=== PATIENT | male | born 2000 | race Hispanic/Latino ===

== ENCOUNTER 2023-05-08 19:28 | Emergency (ER) | payer SELFPAY ==
--- NOTE | 2023-05-08 19:35 | ED.ABDPAIN ---
HPI - Abdominal Pain General Chief Complaint: Abdominal Pain Stated Complaint: Abdominal Pain Time Seen by Provider: 05/08/23 19:36 Source: patient Mode of arrival: ambulatory Limitations: no limitations History of Present Illness HPI narrative: Patient is a 23-year-old male who presents with right lower quadrant pain for 4 days worsening today. Does report some relief when laying on that side. Denies any constipation, diarrhea, nausea, vomiting, fever, chills. Does currently have his appendix. Related Data Home Medications Medication Instructions Recorded Confirmed No Home Medications 05/08/23 05/08/23 Allergies Allergy/AdvReac Type Severity Reaction Status Date / Time No Known Allergies Allergy Verified 05/08/23 19:38 Review of Systems Review of Systems: All systems reviewed & are unremarkable except as noted in HPI and below Constitutional: Constitutional: Denies body ache(s), Denies chills, Denies fatigue, Denies fever(s), Denies headache(s), Denies malaise and Denies weakness Eyes: Eyes: Denies blurry vision, Denies irritation and Denies loss of vision ENT: Denies otalgia, Denies headache(s), Denies nasal discharge, Denies sinus pain and Denies sore throat Cardiovascular: Cardiovascular: Denies chest pain, Denies irregular heart rhythm and Denies dyspnea Respiratory: Respiratory: Denies dyspnea Gastrointestinal: Gastrointestinal: Reports abdominal pain, Denies melena, Denies hematochezia, Denies diarrhea, Denies nausea and Denies vomiting Musculoskeletal: Musculoskeletal: Denies back pain, Denies myalgias and Denies arthralgias Integumentary/Breasts: Skin/Breast: Denies pruritus and Denies rash Neurologic: Denies headache(s), Denies loss of vision and Denies weakness Psychiatric: Psychiatric: Reports no additional psychiatric complaints Endocrine: Endocrine: Denies fatigue PMFSH Comments At time of signature, agree with nursing past medical, surgical, social and family history. There is no relevant family history pertinent to the presenting complaint. Exam Const: General: cooperative, healthy appearing, no acute distress and well nourished Nutritional Appearance: well nourished Orientation/consciousness: patient oriented x3 Limitations: no limitations HENMT: Head: normal to inspection, normocephalic and atraumatic Ears: hearing grossly normal bilaterally and external ears normal Face/Nose/Sinus: Normal external nose present, normal facial exam and face symmetric Face and sinus: normal facial exam and face symmetric Mouth: Yes lip normal Eyes: General: appearance normal, both eyes and all related structures Alignment and Position: alignment normal and position normal Periorbital: periorbital findings normal Eyelids: eyelids normal Pupils: Equal, round and reactive pupils present EOM: EOMs intact bilaterally Neck: Neck: normal visual inspection, full ROM and supple Chest: Chest palpation & inspection: normal inspection of the chest Resp: Effort & Inspection: normal respiratory effort and able to speak in complete sentences Auscultation: clear to auscultation bilaterally Cardio: Rate: regular rate Rhythm: regular rhythm Heart sounds: S1 normal heart sound present and S2 normal heart sound present GI: Inspection: normal to inspection GI Palp: Yes abdominal tenderness, Yes Soft to palpation, Yes Tenderness to palpation present (GI), Yes Guarding due to palpation present (GI) and Yes Rebound tenderness present Auscultation: normal bowel sounds Skin: General skin exam: normal color and no rashes or lesions noted Neuro: General: patient oriented x3 and moves all extremities Cranial nerves: Yes Equal, round and reactive pupils present Speech: normal speech Gait exam (Neuro): Normal gait present Extrem: General: normal to inspection, full ROM and no edema Psych: Appearance: grossly normal and well kempt Mental Status: mental status grossly normal Speech and movement: Normal speec
[2023-05-08 19:39] VITALS: BP 127/78; PULSE 97; RESP 20; TEMP 38.7; O2SAT 100
== END 2023-05-08 20:11 | disposition short-term general hospital (02) ==
PROVIDERS: Emergency Provider Nurse Practitioner Family
DX: R10.31 Right lower quadrant pain (principal)
CPT/HCPCS: 99202; G0463

== ENCOUNTER 2023-05-08 20:27 | Observation (INO) | payer SELFPAY ==
--- NOTE | ~2023-05-08 | CT_ITS ---
EXAMINATION: CT abdomen pelvis w con DATE: 05/08/2023 22:03 INDICATION: Right lower quadrant abdominal pain TECHNIQUE: Computed tomography (CT) of the abdomen and pelvis was performed with 100 mL Omnipaque-350 intravenous contrast. Automated exposure control and iterative reconstruction technique were employe d. The dose-length product was 331.24 mGy-cm. COMPARISON: None FINDINGS: Lung bases are clear. Heart size is normal. No pericardial or pleural effusion. Liver, gallbladder, s pleen, pancreas, bilateral adrenal glands and kidneys are normal. Surrounding mucosal enhancement and mucosal hyperemia of the dilated fluid-filled appendix which measures up to 1.4 cm in maximal diamet er consistent with acute appendicitis. Likely obstructing small appendicolith is seen near the base o f the appendix. Remainder of the bowels are unremarkable. Bladder is normal. No abscess or free intra peritoneal gas or fluid. No pathologically enlarged abdominal or pelvic lymphadenopathy. Mild lumbar levocurvature which could be positional. IMPRESSION: 1. Acute appendicitis. Dr. Estes discussed these findings with Dr. Flores at 10:20 PM. Reviewed, dictated and finalized at location A.
[2023-05-08 20:43] VITALS: BP 128/79; PULSE 95; RESP 16; TEMP 36.9; O2SAT 100
[2023-05-08 21:04] LABS: Basophils Percent Auto 0.2 % (0.2-1.2); Hematocrit 42.6 % (42.0-52.0); Hemoglobin 14.4 g/dL (14.0-18.0); Immature Granulocyte Absolute 0.08 K/mm3 (0.00-0.031); Immature Granulocyte Percent A 0.5 % (0-0.5); Lymphocytes Absolute Auto 1.03 K/mm3 (0.9-3.2); Lymphocytes Percent Auto 6.8 % (18.3-44.2); Mean Corpuscular HGB Conc 33.8 g/dl (32-36); Mean Corpuscular Hemoglobin 30.3 pg (26-34); Mean Corpuscular Volume 89.7 fl (80-100); Mean Platelet Volume 8.4 fl (7.4-10.4); Monocytes Absolute Auto 1.2 K/mm3 (0.1-0.6); Monocytes Percent Auto 8.1 % (2.6-8.5); Neutrophils Absolute Auto 12.9 K/mm3 (1.3-6.7); Neutrophils Percent Auto 84.4 % (45.5-73.1); Platelet Count Result 301 k/mm3 (150-375); Red Blood Count 4.75 M/mm3 (4.6-6.20); Red Cell Distribution Width 12.8 % (11.5-14.5); White Blood Count 15.2 K/mm3 (4.5-10.0)
[2023-05-08 21:11] LABS: Appearance Urine Clear (Clear); Bacteria Urine None Seen /hpf; Bilirubin Urine Negative (Negative); Blood Urine 2+ (Negative); Color Urine Yellow (Yellow); Glucose Urine UA Negative (Negative); Ketones Urine Negative (Negative); Leukocyte Esterase Ur Negative LEU/UL (Negative); Nitrate Urine Negative (Negative); Non Pathogenic Casts 0-2; Protein Urine Trace mg/dL (Negative); Specific Grav Ur 1.028 (1.001-1.035); Squamous Epithelial Cell Urine None seen /hpf (Few); Urobilinogen Urine 0.2 mg/dL (<2.0); WBC Urine 0-5 /hpf; pH Urine 5.5 (5.0-9.0)
[2023-05-08 21:12] LABS: Add Urine Microscopic? YES
[2023-05-08 21:21] LABS: Alanine Aminotransferase 34 U/L (6-50); Alkaline Phosphatase 124 U/L (38-126); Anion Gap 9 mmol/L (8-16); Aspartate Amino Transferase 32 U/L (17-59); Blood Urea Nitrogen 13 mg/dL (9-20); Calcium 9.8 mg/dL (8.4-10.2); Carbon Dioxide 26 mmol/L (22-30); Chloride 99 mmol/L (98-107); Estimated CRCL calculation 104 ml/min; Estimated Glomerular Filt Rate > 60; Glucose 109 mg/dL (65-110); Lipase 48 U/L (23-300); Potassium 4.2 mmol/L (3.4-5.0); Sodium 134 mmol/L (137-145)
[2023-05-08 22:29] VITALS: BP 150/91; PULSE 90; RESP 18; O2SAT 100
--- NOTE | 2023-05-08 22:54 | ED.ABDPAIN ---
HPI - Abdominal Pain General Chief Complaint: Abdominal Pain Stated Complaint: abd pain Time Seen by Provider: 05/08/23 21:53 History of Present Illness HPI narrative: 23-year-old male with no significant past medical history presented the emergency department for evaluation of 4 days of right lower quadrant pain. Patient has had some diarrhea but denies any current nausea or vomiting. Patient initially went to an urgent care but was sent to the ED for further evaluation. Patient is [place]-speaking and a family member preferred to translate. Related Data Home Medications Medication Instructions Recorded Confirmed No Home Medications 05/08/23 05/09/23 Allergies Allergy/AdvReac Type Severity Reaction Status Date / Time No Known Allergies Allergy Verified 05/08/23 20:47 Review of Systems Review of Systems: All systems reviewed & are unremarkable except as noted in HPI and below PMFSH Social History Social History Smoking packs per day: 0.5 Smoking cigarettes per day: 10.0 Smoking status: Former smoker Tobacco type: cigarettes Second hand tobacco smoke exposure: Yes Alcohol intake: current Drinks per week: 1 Substance use: never Lack of Transportation: No Lack of Food: Sometimes True Current Housing: I Have Housing Concerned About Future Housing: No Difficulty Paying Gas/Electric Bills: No Difficulty Paying for Meds: No Currently Unemployed: No Education: Associate Degree Difficulty w/ Childcare or Family Care: No Spiritual care concerns: No Exam Narrative: APPEARANCE: Well appearing, no pain, no distress, well-nourished. HEAD: normocephalic, atraumatic. EYES: PERRLA/EOMI, conjunctivae clear. NOSE: Normal no drainage EARS:TMS clear with good light reflex. THROAT: Pharynx clear, no exudate. NECK: Supple. No adenopathy, no masses. RESPIRATORY: Airway patent, respirations nonlabored. Clear to auscultation bilaterally, no rales, rhonchi, wheezing. CARDIOVASCULAR: Regular rate and rhythm without murmurs rubs or gallops. ABDOMINAL: Soft, lower abdominal tenderness to palpation EXTR MUSCULOSKELETAL: Moves all extremities. Strength/ROM intact, No edema, No calf tenderness. NEURO: Alert. Cranial nerves II through XII intact. Grossly intact SKIN: Warm, dry. Normal Color Course Course Emergency Course: 23-year-old male with right lower quadrant pain. Patient is afebrile but does have a leukocytosis of 15.2. No significant abnormalities on his CMP UA does show some red blood cells. CT scan showed acute appendicitis surrounding mucosal enhancement and mucosal hyperemia of the dilated fluid-filled appendix which measures up to 1.4 cm in diameter consistent with acute appendicitis. Likely obstructing small appendicoliths seen near the base of the appendix. No abscess or free intraperitoneal gas or fluid. Patient last had something to eat around 7 PM. Surgery was consulted. And patient was admitted primarily to surgery. Patient and family were updated on the plan for admission. Patient was started on Zosyn prior to admission. Vital Signs Vital signs: Vital Signs Temperature 98.4 F 05/08/23 20:43 Pulse Rate 95 05/08/23 20:43 Respiratory Rate 16 05/08/23 20:43 Blood Pressure 128/79 05/08/23 20:43 Pulse Oximetry 100 05/08/23 20:43 Oxygen Delivery Room Air 05/08/23 20:43 Temperature 98.7 F 05/09/23 01:20 Pulse Rate 96 05/09/23 01:20 Respiratory Rate 16 05/09/23 01:20 Blood Pressure 129/74 05/09/23 01:20 Pulse Oximetry 100 05/09/23 01:20 Oxygen Delivery Room Air 05/09/23 02:08 MDM - Abdominal Pain Differential Diagnosis Differential diagnosis: Likely abdominal pain, acute appendicitis, constipation, diverticulitis, gastroenteritis, pancreatitis and small bowel obstruction Lab Data Attestation: I reviewed the patient's lab results. 05/08/23 20:51 05/08/23 20:51 Labs: Lab Results 05/08
--- NOTE | 2023-05-08 23:00 | PC.NURSE ---
Assumed care of pt. at this time. Report from TOMMY Goldman
--- NOTE | 2023-05-08 23:00 | PC.NURSE ---
Assumed care of pt. at this time. Report from TOMMY Goldman
[2023-05-08 23:22] LABS: Lactic Acid Reflex 1.3 mmol/L (0.7-2.0)
[2023-05-08 23:27] VITALS: BP 144/82; PULSE 95; RESP 26; TEMP 37.1; O2SAT 99
[2023-05-08] MEDS: LACTATED RINGERS 1,000 ML 999 ML IV CONT (23:27)
[2023-05-08] MEDS: PIPERACILLN/TAZ 3.375GM/NS50ML 3.375 GM/50 ML BAG IVPB (23:27)
[2023-05-08] MEDS: HYDROmorphone HCL INJ (*CRX) 1 MG/ML SYR IV PUSH (23:33)
[2023-05-09] VITALS (15 sets, daily range): BP systolic 105–148; BP diastolic 61–96; PULSE 62–96; RESP 12–22; TEMP 36.4–37.3; O2SAT 97–100
--- NOTE | 2023-05-09 01:22 | ADMGEN ---
This patient, Rhett Edmond, was admitted to [facility] Surg Room 311-01. Patient/family oriented to hospital policies and general routines including ID bracelet, bed and alarms, visiting hours, pain management, procedures, bathroom and other care routines, personal items, smoking policy, room service/diet, and visiting hours. Information on how to activate the Rapid Response Team has been discussed. Patient/Family are encouraged to report perceived risks to care and to ask questions if they do not understand what they are told or what they should do.
[2023-05-09] MEDS: HYDROmorphone HCL INJ (*CRX) 1 MG/ML SYR 0.5 MG IV PUSH ×2 (01:39→06:16)
[2023-05-09] MEDS: SODIUM CHLORIDE 0.9% IV 1,000 ML 125 ML IV CONT ×2 (06:01→16:38)
--- NOTE | 2023-05-09 07:56 | PM.IMHP ---
H&P: HPI History of Present Illness Date/Time: 05/09/23 07:56 Chief Complaint: Acute appendicitis Narrative: Information was obtained with the aid of a [place]-speaking language interpreter. Patient is a previously healthy 23-year-old male who presented to the emergency with a 4 day history of gradually worsening right lower quadrant abdominal pain. He had some diarrhea which was nonbloody but no nausea or vomiting. No subjective fever at home. In the emergency room was [place] [id number] scan abdomen pelvis was performed showing a dilated inflamed appendix without evidence of perforation or periappendiceal abscess. He has had no prior abdominal surgery. Review of Systems Review of Systems: The remainder of the review of systems to include constitutional, HEENT, cardiovascular, respiratory, GI, , integumentary, musculoskeletal, endocrine, immunologic, hematologic, psychiatric, and neurologic are all negative except for which is mentioned above in the HPI. [facility] Social History Social History Smoking packs per day: 0.5 Smoking cigarettes per day: 10.0 Smoking status: Former smoker Tobacco type: cigarettes Second hand tobacco smoke exposure: Yes Alcohol intake: current Drinks per week: 1 Substance use: never Lack of Transportation: No Lack of Food: Sometimes True Current Housing: I Have Housing Concerned About Future Housing: No Difficulty Paying Gas/Electric Bills: No Difficulty Paying for Meds: No Currently Unemployed: No Education: Associate Degree Difficulty w/ Childcare or Family Care: No Spiritual care concerns: No Meds Home Medications and Allergies Home Medications Medication Instructions Recorded Confirmed Type No Home Medications 05/08/23 05/09/23 History Allergies Allergy/AdvReac Type Severity Reaction Status Date / Time No Known Allergies Allergy Verified 05/08/23 20:47 Vital Signs Vital Signs - 24 hr 05/08/23 20:43 05/08/23 22:29 05/08/23 23:27 Temperature 36.9 C 37.1 C Pulse Rate 95 90 95 Respiratory Rate 16 18 26 H Blood Pressure 128/79 150/91 H 144/82 H Pulse Oximetry 100 100 99 Oxygen Delivery Room Air 05/09/23 01:07 05/09/23 01:20 05/09/23 02:08 Temperature 37.1 C Pulse Rate 81 96 Respiratory Rate 14 16 Blood Pressure 113/89 129/74 Pulse Oximetry 97 100 Oxygen Delivery Room Air 05/09/23 06:00 Temperature 37.2 C Pulse Rate 82 Respiratory Rate 16 Blood Pressure 121/66 Pulse Oximetry 100 Oxygen Delivery Exam Const: General: comfortable and no acute distress HENMT: Ears: TM's normal bilaterally Face/Nose/Sinus: Normal nares present Mouth: Yes moist mucous membranes Eyes: General: appearance normal, both eyes and all related structures Sclera: sclerae normal Pupils: Equal, round and reactive pupils present EOM: EOMs intact bilaterally Neck: Neck: supple and no JVD Resp: Effort & Inspection: normal respiratory effort Auscultation: clear to auscultation bilaterally Cardio: Rate: regular rate Rhythm: regular rhythm GI: Other: Abdomen is soft and nondistended. He has moderate to severe tenderness to palpation right lower quadrant the abdomen with localized peritoneal signs but no generalized peritoneal signs. No masses are organomegaly is appreciated. No ventral hernias are noted. Skin: General skin exam: normal color and no rashes or lesions noted Neuro: General: gait normal Speech: normal speech Motor exam (neuro): 5/5 motor strength present throughout Sensory Exam: normal sensation Extrem: General: normal to inspection Psych: Mental Status: mental status grossly normal Affect: normal affect H&P: Results Labs Labs: Short CBC 05/08/23 Range/Units 20:51 WBC 15.2 H (4.5-10.0) K/mm3 Hgb 14.4 (14.0-18.0) g/dL Hct 42.6 (42.0-52.0) % Plt Count 301 (150-375) k/mm3 [facility] 05/08/23
--- NOTE | 2023-05-09 08:13 | WPDHPUPDATE1 ---
History and Physical Update Update Date/Time: 05/09/23 08:13 History and Physical has been reviewed, including an updated exam of the patient. There are NO changes in the patient's condition. Risks, benefits, and alternatives have been discussed and questions answered. Patient agrees to proceed with procedure.
[2023-05-09] MEDS: HYDROmorphone HCL INJ (*CRX) 1 MG/ML SYR IV PUSH ×2 (10:01→16:48)
[2023-05-09] MEDS: PIPERACILLN/TAZ 3.375GM/NS50ML 3.375 GM/50 ML BAG IVPB ×2 (10:01→15:20)
--- NOTE | 2023-05-09 12:51 | WPDANESEPPF ---
Anes - Initial Pre Proc Eval Procedure: Operation Date: 05/09/23 14:00 Proposed Procedures p Laparoscopic Appendectomy - Aden Gilmore MD Date/Time: 05/09/23 12:51 Surgeon: Aden Gilmore MD Pre Op Diagnosis: abd pain Patient Data Age: 23 Gender: M Height: 1.7 m Weight: 71.7 kg Last Vital Signs Temp 37.2 C 05/09/23 06:00 Pulse 82 05/09/23 06:00 Resp 16 05/09/23 06:00 BP 121/66 05/09/23 06:00 Pulse Ox 100 05/09/23 06:00 O2 Del Method Room Air 05/09/23 02:08 Allergies Allergy/AdvReac Type Severity Reaction Status Date / Time No Known Allergies Allergy Verified 05/08/23 20:47 Home Medications Medication Instructions Recorded Confirmed Type No Home Medications 05/08/23 05/09/23 History Laboratory Tests 05/08/23 05/08/23 05/08/23 20:51 20:56 23:05 WBC 15.2 H K/mm3 (4.5-10.0) RBC 4.75 M/mm3 (4.6-6.20) Hgb 14.4 g/dL (14.0-18.0) Hct 42.6 % (42.0-52.0) MCV 89.7 fl (80-100) MCH 30.3 pg (26-34) MCHC 33.8 g/dl (32-36) RDW 12.8 % (11.5-14.5) Plt Count 301 k/mm3 (150-375) MPV 8.4 fl (7.4-10.4) Immature Gran % (Auto) 0.5 % (0-0.5) Neut % (Auto) 84.4 H % (45.5-73.1) Lymph % (Auto) 6.8 L % (18.3-44.2) [place] % (Auto) 8.1 % (2.6-8.5) Eos % (Auto) 0.0 % (0-4.4) Baso % (Auto) 0.2 % (0.2-1.2) Lymph # (Auto) 1.03 K/mm3 (0.9-3.2) [place] # (Auto) 1.2 H K/mm3 (0.1-0.6) Eos # (Auto) 0.0 K/mm3 (0-0.3) Baso # (Auto) 0.0 K/mm3 (0.0-0.1) Abs Immat Gran (auto) 0.08 H K/mm3 (0.00-0.031) Absolute Neuts (auto) 12.9 H K/mm3 (1.3-6.7) Absolute Nucleated RBC 0.0 K/mm3 (0.0-0.012) Nucleated RBC % 0.0 % (0.0-0.2) Sodium 134 L mmol/L (137-145) Potassium 4.2 mmol/L (3.4-5.0) Chloride 99 mmol/L (98-107) Carbon Dioxide 26 mmol/L (22-30) Anion Gap 9 mmol/L (8-16) BUN 13 mg/dL (9-20) Creatinine 0.90 mg/dL (0.7-1.3) Estim Creat Clear Calc 104 ml/min Estimated GFR > 60 (59 - ) Glucose 109 mg/dL (65-110) Lactic Acid 1.3 mmol/L (0.7-2.0) Calcium 9.8 mg/dL (8.4-10.2) Total Bilirubin 1.0 mg/dL (0.2-1.3) AST 32 U/L (17-59) ALT 34 U/L (6-50) Alkaline Phosphatase 124 U/L (38-126) Total Protein 9.0 H g/dL (6.3-8.2) Albumin 5.0 g/dL (3.5-5.1) Lipase 48 U/L (23-300) Urine Color Yellow (Yellow) Urine Appearance Clear (Clear) Urine pH 5.5 (5.0-9.0) Ur Specific [place] 1.028 (1.001-1.035) Urine Protein Trace mg/dL (Negative) Urine Glucose (UA) Negative mg/dL (Negative) Urine Ketones Negative mg/dL (Negative) Ur Blood (Man) 2+ H (Negative) Urine Nitrate Negative (Negative) Urine Bilirubin Negative (Negative) Urine Urobilinogen 0.2 mg/dL (<2.0) Leukocyte Esterase Rfl Negative BUDDY/UL (Negative) Urine RBC 11-20 H /hpf (0-2) Urine WBC 0-5 /hpf Ur Squamous Epith Cells None seen /hpf (Few) Urine Bacteria None seen /hpf Urine Casts 0-2 Patient hx anesthesia problems: none Family hx anesthesia problems: none Results Review: All pre-operative results and documents have been reviewed as part of the pre-operative evaluation. [facility] Social History Social History Smoking packs per day: 0.5 Smoking cigarettes per day: 10.0 Smoking status: Former smoker Tobacco type: cigarettes Second hand tobacco smoke exposure: Yes Alcohol intake: current Drinks per week:
[2023-05-09] MEDS: LACTATED RINGERS 1,000 ML 30 ML IV CONT (13:45)
[2023-05-09] MEDS: LIDO 1%/EPINEPHRINE 1:100,000 20 ML VIAL 6 ML INFILTRATE (14:14)
--- NOTE | 2023-05-09 15:24 | W.PM.PROC2 ---
Procedure Note - Detailed Date of Procedure 05/09/23 Pre-op Diagnosis Acute appendicitis Post-op Diagnosis Same Procedure Performed Laparoscopic appendectomy Surgeon Aden Gilmore MD [facility] JESSE Torrez Anesthesia General Indications Patient is a 23 old male presents to the emergency with a 4 day history of worsening right lower quadrant abdominal pain. Had a leukocytosis of 15,[address] scan abdomen pelvis showed inflamed appendix without perforation. Presents now for emergent laparoscopic appendectomy. Findings Acutely inflamed appendix for habits whole length. No gangrene or perforation of the appendix. Appendiceal base appeared to be normal. No periappendiceal abscess. Description of Procedure After informed consent was obtained patient brought to the operating room was placed supine position and then general endotracheal anesthesia was administered. The abdomen was then prepped and draped in usual sterile fashion. A time-out was then performed correctly identifying the patient as well as procedure to be performed verifying that he was given perioperative IV antibiotics. The proceeded to gain entrance into the abdomen utilizing a 5mm Optiview port in left upper quadrant. With a direct optical insertion I entered the abdomen then insufflated to adequate pneumoperitoneum of 15mmHg of CO2. I then placed additional 12mm trocar port periumbilical position then a 5mm trocar port in the suprapubic position and a 5mm trocar port left lower quadrant the abdomen all under direct visualization. Identified the appendix in the right lower quadrant the abdomen. It was lateral to the cecum. I was able to hold with laparoscopic grasper and then freed from its surrounding inflammatory adhesions. A 5 the base of the appendix and appeared normal without evidence of inflammation. I then utilizing laparoscopic dissecting instrument and then made a defect through the mesoappendix just at the base. A 45mm Endo-EVELINE stapler was then used to divide the appendix flush with the cecum. Vascular reload of the Endo-EVELINE stapler were then used to divide the mesoappendix. The appendix was then placed into an Endo-Catch bag and brought out through the periumbilical trocar port site. It was passed off table sent to pathology for examination. I then irrigated out the right lower quadrant the abdomen the pelvis was copious amounts sterile saline solution. Hemostasis was excellent. Staple lines were intact without evidence of any bleeding or drainage of enteric contents. I then aspirated the fluid from the pelvis and from the right upper quadrant the abdomen. I then removed all the trocar ports under direct visualization all port sites appeared hemostatic. I then allowed the abdomen decompressed. I then closed the 12mm periumbilical trocar port site utilizing 0 Vicryl suture placed in a figure-eight fashion. The skin edges in all the port sites with the proximal utilizing a running subcuticular 4-0 Monocryl suture. The incisions were then cleaned the skin glue was applied. The patient tolerated the procedure well no complications. All sponges, needles, and instrument counts were correct at the end procedure. EBL was __25_cc. The patient was awakened and taken to recovery in stable and satisfactory condition. Implants None Estimated Blood Loss -25.0 Urine Output 400 Drains No Packing No Pathology Yes (Appendix to pathology) Complications No immediate complications Condition Stable Disposition PACU [facility] Billing Surgery - Charge Forward: Surgery Billing
--- NOTE | 2023-05-09 15:55 | SUR.PHASEI ---
1555- Lennie Ortega RN to bedside and translated for patient. Patient denying pain to surgical site. Patient complaining of pain to throat at this time. Ice chips offered and patient accepted. Patient notified of plan of care and all questions and concerns answered at this time. Patient verbalized understanding of care.
[2023-05-09] MEDS: ACETAMINOPHEN 500 MG TABLET 1000 MG PO (16:39)
[2023-05-09] MEDS: HYDROcodone/acetaminophen (*CRX) 5-325 MG TABLET 1 TAB PO (18:19)
[2023-05-10] MEDS: HYDROcodone/acetaminophen (*CRX) 5-325 MG TABLET 1 TAB PO ×2 (01:02→08:53)
[2023-05-10] MEDS: SODIUM CHLORIDE 0.9% IV 1,000 ML 125 ML IV CONT (01:03)
[2023-05-10 06:00] VITALS: BP 117/62; PULSE 63; RESP 18; TEMP 36.4; O2SAT 100
[2023-05-10] MEDS: ACETAMINOPHEN 500 MG TABLET 1000 MG PO (07:54)
[2023-05-10 08:40] VITALS: O2SAT 100
--- NOTE | 2023-05-10 09:29 | PM.DS ---
DS: Admitting Diagnosis Discharge Date May 10, 2023 Admitting Diagnosis Acute appendicitis DS: Discharge Diagnosis Discharge Diagnosis (1) Acute appendicitis: Code(s): K35.80 - Unspecified acute appendicitis Status: Acute Assessment and Plan: Patient is doing well today after laparoscopic appendectomy yesterday. He is eating well and no fever. Pain is tolerated with just oral pain medication. Discharge home today. DS: Summary Hospital Course Reason for hospitalization: Acute appendicitis Hospital Course: Patient came [facility] ER complaining of a 3 day history of worsening right lower quadrant abdominal pain. Workup in emergency room showed elevated white blood cell count as well as a CT scan showing a dilated and inflamed appendix. He was then taken to the operating room urgently later the same day where he underwent an uncomplicated laparoscopic appendectomy. Postoperatively his course in the recovery room was uneventful and is transferred to surgical floor for routine care overnight. On the surgical floor he did well and tolerated clear liquids and advance to regular diet which he tolerated. His pain was well controlled with just oral narcotic pain medications. His incisions were inspected next and they are healing well without wound complications. He was discharged home on postop day 1 In improved condition. Status at Discharge Functional status at discharge: independent ambulation Time Spent with Patient Time attestation: Total time spent providing and/or coordinating discharge services: Time spent: Less than 30 minutes Exam GI: Other: Abdomen is soft none port site incision he well without any redness or drainage or bleeding. Minimal tenderness around the port sites is noted. Right lower quadrant pain has resolved. DS: Data Data Completed and Pending Pending studies at discharge: Pending at discharge 05/09/23 14:42 Surgical [PTH] Routine Labs on day of discharge: Preliminary micro results at discharge 05/08/23 23:05 Blood Culture - Preliminary Blood 05/08/23 23:24 Blood Culture - Preliminary Blood Procedures/Treatments: Laparoscopic appendectomy Discharge Plan Discharge Attending physician on discharge: Aden Gilmore Consulting providers: Nancy Baker Discharging Clinician: Aden Gilmore Anticipated Discharge Date/Time: 05/10/23 09:26 Patient Disposition: Home, Self-Care Activity: may shower Diet: as tolerated Wound Care Instructions: other - see discharge instructions Discharge Instructions: May discharge home when stable. Follow up with Dr. Gilmore in the office in 2 weeks. Patient to call [phone] for an appointment. May shower in 24hours but do not soak incisions under water for 2 weeks. No lifting more than 10 to 15 lb for 2 weeks. May advance diet as tolerated. No driving for at least 3 days or until no longer taking any narcotic pain medication. Resume all home medications. Prescription for narcotic pain medicines will be sent to the patient's pharmacy if needed. Patient Instructions: Antibiotic Form Stand Alone Forms: General Discharge Information Follow-up/Referrals: Aden Gilmore MD [Physician] - (Follow-up with Dr. Gilmore the office in 2 weeks. 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
== END 2023-05-10 14:05 | disposition home or self-care (01) ==
LOC: ANHED 22:08 → ANH3MEDSUR 05-09 05:22
PROVIDERS: Admitting Provider Surgery; Emergency Provider Emergency Medicine; Visit Provider Surgery
PROC: 0DTJ4ZZ Resection of Appendix, Percutaneous Endoscopic Approach (ICD-10-PCS; CPT 44970; principal; 2023-05-09 14:00)
DX: K35.80 Unspecified acute appendicitis (principal); Z87.891 Personal history of nicotine dependence; F10.90 Alcohol use, unspecified, uncomplicated
CPT/HCPCS: 44970; 36415; 74177; 80053; 81001; 83605; 83690; 85025; 87040; 88304; 96361; 96365; 96375; 96376; 99285; A9270; G0378; J0330; J1100; J1170; J2250; J2405; J2543; J2704; J3010; J7030; J7120; Q9967